=== PATIENT | male | born 1965 | race Caucasian/White ===

== ENCOUNTER 2025-06-28 17:34 | Emergency (ER) | payer OTHER ==
[~2025-06-28 17:34] MED LIST: Iopamidol 370 76% 100 ML VIAL ONE
[2025-06-28] MEDS ORDERED: Ondansetron PF 4 MG/2 ML Vial ONE ×2 (18:13→21:26)
[2025-06-28] MEDS ORDERED: Pantoprazole 40 MG VIAL ONE (18:13)
[2025-06-28 18:31] LABS: Hematocrit 45.6 % (42.0-52.0); Hemoglobin 15.0 g/dL (14.0-18.0); Mean Corpuscular Hemoglobin 29.6 pg (27.0-31.0); Mean Corpuscular Volume 90.2 fl (78.0-98.0); Platelet Count 438 10x3/uL (130-400); Red Blood Cell (RBC) Count 5.05 mill/uL (4.70-6.10); White Blood Cell (WBC) Count 13.3 10x3/uL (4.8-10.8)
[2025-06-28 18:36] LABS: INR-International Normal Ratio 0.9; Prothrombin Time 12.2 sec (12.0-14.7)
[2025-06-28 18:37] LABS: PTT 25.9 sec (22.9-36.1)
[2025-06-28 18:38] LABS: MDiff Complete? YES; Manual Diff?? YES
[2025-06-28 18:39] LABS: Platelet Adequacy Comment Platelets Increased
[2025-06-28 18:40] LABS: Acetaminophen Less than 10 mcg/mL (Less than 10); Magnesium 1.6 mg/dL (1.6-2.6); Salicylate Less than 8.0 mg/dL (Less than 8.0)
[2025-06-28 18:42] LABS: ALT (SGPT) 11 U/L (Less than 45); AST (SGOT) 24 U/L (11-34); Albumin 3.8 g/dL (3.1-4.5); Alkaline Phosphatase 73 U/L (40-110); Anion Gap 21 mmol/L (10-20); BUN (Urea Nitrogen) 16 mg/dL (8.4-25.7); Bilirubin, Total 0.9 mg/dL (0.3-1.2); Calc. Creatinine Clearance 0 mL/min (70-130); Calcium 9.4 mg/dL (7.8-10.44); Carbon Dioxide 20 mmol/L (22-29); Chloride 101 mmol/L (98-107); Globulin 3.4 g/dL (2.4-3.5); Glucose 120 mg/dL (70-105); Lipase 21 U/L (8-78); Potassium 3.7 mmol/L (3.5-5.1); Sodium 138 mmol/L (136-145)
[2025-06-28 19:10] LABS: Leukocyte Negative (Negative); Specific Gravity, Urine 1.020 (1.005-1.030)
[2025-06-28 19:11] LABS: Glucose, Urine (Dipstick) Negative (Negative); Protein, Urine (Dipstick) 100 mg/dL (Neg-Trace)
[2025-06-28 19:15] LABS: Bacteria/HPF Rare-Few HPF (None Seen); CAUTI Indications for Culture Pelvic or flank pain; Mucous/LPF Few LPF (<2+); Urine Culture Reflex No No; WBC/HPF 0-3 HPF (0-3)
[2025-06-28 19:17] LABS: THC/Cannabinoid Screen PRELIM POSITIVE (Negative); Tricyclic Screen Negative (Negative)
[2025-06-28 19:18] LABS: Cocaine Metabolite Screen Negative (Negative)
[2025-06-28] MEDS ORDERED: metroNIDAZOLE 500 MG (100 mL) BAG ONE (19:25)
[2025-06-28] MEDS ORDERED: LevoFLOXacin 750 mg/D5W 150 ml Premix Bag ONE (19:25)
== END 2025-06-28 22:46 | disposition short-term general hospital (02) ==
LOC: MADERS 17:34
DX: K20.90 Esophagitis, unspecified without bleeding (principal); K52.9 Noninfective gastroenteritis and colitis, unspecified; K92.0 Hematemesis
CPT/HCPCS: 36415; 74177; 80053; 80306; 80307; 81001; 83605; 83690; 83735; 85025; 85610; 85730; 93005; 96361; 96365; 96367; 96375; 96376; J1956; J2270; J2405; J2470; J7030; Q9967